=== PATIENT | female | born 1985 | race Caucasian/White ===

== ENCOUNTER 2018-05-30 20:38 | Emergency (ER) | payer OTHER ==
[~2018-05-30] VITALS: Ht 172.7 cm; Wt 117.9 kg
[~2018-05-30 20:38] MED LIST: ACETAMINOPHEN325 M1 PO; ALBUTEROL SULF8.5 GM INH; ALLEGRA ALLERGY60 MG PO; AMOXICILLIN500 MG; AMOXICILLIN500 MG PO; AMOXICILLIN875 MG PO; AUGMENTIN 875-1 EACH PO; BACLOFEN10 MG PO; CLARITHROMYCIN500 MG PO; CLARITIN10 MG PO; CLONAZEPAM0.5 M1 PO; DIFLUCAN150 MG PO; ERYTHROMYCIN3.5 GM OD; FIBER GUMMIES1 EACH PO; FLONASE2 SPRAY NS; IBUPROFEN200 M1 PO; IBUPROFEN800 MG PO; IRON18 MG PO; KEFLEX500 MG PO; LANSOPRAZOLE30 MG PO; LEXAPRO10 MG PO; NAPROXEN500 MG PO; NORCO 5-325 TA1 EACH PO; OMEPRAZOLE20 MG PO; PEPCID20 MG PO; PROBIOTIC1 EAC5 PO; PSEUDOEPHEDRINE60 MG PO; SEPTRA DS TABL1 EACH PO; SINUS & ALLERG120 MG PO; ULTRAM50 MG PO; VITAMIN D5000 UNIT PO; ZITHROMAX250 MG PO; ZOFRAN ODT4 MG PO; ZOFRAN ODT8 MG PO; ZOFRAN4 MG PO; ZOLOFT25 MG PO
[2018-05-30] MEDS ORDERED: PANTOPRAZOLE SO40 MG PO (20:48)
--- NOTE | 2018-05-31 11:43 | EKG ---
[facility] [address] [facility] [place] [address] Signed Normal sinus rhythm Normal ECG No previous ECGs available Confirmed by DEBORAH TYSON MD ([id number]) on 05/31/2018 11:43:48 AM Electronically Signed By: DEBORAH TYSON MD 05/31/18 1143 PATIENT NAME: MAMTA NORMAN MARTELL Electrocardiogram DATE OF : 89 PHYSICIAN: DEBORAH TYSON MD REPORT #: [id number] REPORT IS CONFIDENTIAL AND NOT TO BE RELEASED WITHOUT AUTHORIZATION
== END 2018-05-30 23:01 | disposition home or self-care (01) ==
LOC: ED 20:38
DX: R42 Dizziness and giddiness (principal); F41.9 Anxiety disorder, unspecified; E78.00 Pure hypercholesterolemia, unspecified; Z88.8 Allergy status to other drugs, medicaments and biological substances; Z79.899 Other long term (current) drug therapy
CPT/HCPCS: 80053; 84703; 85025; 93005; 93010; 96360; 99284; J7030

== ENCOUNTER 2019-08-22 04:16 | Emergency (ER) | payer OTHER ==
[~2019-08-22] VITALS: Ht 172.7 cm; Wt 117.9 kg
[~2019-08-22 04:16] MED LIST changes: +PANTOPRAZOLE SO40 MG PO
--- OUTSIDE RECORDS SUMMARY | 2019-08-22 04:18 | XMS ---
PreManage Notification: MAMTA NORMAN Security Industrial Engineering Technologist Events No recent Security Events currently on file CRITERIA MET - NANCY CARE PROVIDERS VIOLETTA HOLMAN Physician Library Services Assistant 05/27/2019-Current PHONE: Unknown Maury Zamarripa MD PHONE: Unknown [facility] 08/30/2010-Frandy Mariee MD PHONE: Unknown Chinmay Porter Current Orthopedic Surgery \T\ Fracture [facility] PHONE: Unknown Violetta Holman Primary Care Current PHONE: Unknown VIOLETTA HOLMAN Primary Care Current PHONE: [phone] [place] has no Care Guidelines for this patient. Kacey VISIT COUNT (12 MO.) 2 [facility] TOTAL 2 NOTE: Visits indicate total known visits. ED/UCC VISIT TRACKING (12 MO.) 08/22/2019 04:17 [facility] [place] TYPE: Emergency COMPLAINT: - COUGH,FEVER 05/26/2019 11:57 [facility] [place] TYPE: Emergency COMPLAINT: - CHEST PRESSURE, NAUSEA DIAGNOSES: - Nicotine dependence, unspecified, uncomplicated - Anxiety disorder, unspecified - Chest pain, unspecified - Allergy status to oth drug/meds/biol subst status - Other superintendent marine oil terminal (current) drug therapy - Acquired absence of other specified parts of digestive tract - Allergy status to analgesic agent status INPATIENT VISIT TRACKING (12 MO.) No inpatient visits to display in this time frame [email or web address]
== END 2019-08-22 05:10 | disposition home or self-care (01) ==
LOC: ED 04:16
DX: J40 Bronchitis, not specified as acute or chronic (principal); F41.9 Anxiety disorder, unspecified; E78.00 Pure hypercholesterolemia, unspecified; F17.200 Nicotine dependence, unspecified, uncomplicated; Z88.8 Allergy status to other drugs, medicaments and biological substances; Z79.899 Other long term (current) drug therapy
CPT/HCPCS: 71046; 99283-25

== ENCOUNTER 2020-11-25 01:11 | Emergency (ER) | payer OTHER ==
[~2020-11-25] VITALS: Ht 172.7 cm; Wt 131.5 kg
--- OUTSIDE RECORDS SUMMARY | 2020-11-25 01:14 | XMS ---
PreManage Notification: MAMTA NORMAN Security Auto Customize Painter Events No recent Security Events currently on file CRITERIA MET - PDMP CARE PROVIDERS VIOLETTA CELAYA Physician General Manager Food 05/27/2019-Current PHONE: Unknown [place] has no Care Guidelines for this patient. EJohn VISIT COUNT (12 MO.) 1 [facility]KO Sherman TOTAL 1 NOTE: Visits indicate total known visits. ED/UCC VISIT TRACKING (12 MO.) 11/25/2020 01:12 [facility] [place] TYPE: Emergency COMPLAINT: - ABDOMINAL PAIN/VOMITING INPATIENT VISIT TRACKING (12 MO.) No inpatient visits to display in this time frame [email or web address]
[2020-11-25] MEDS ORDERED: HYDROCODON-ACE1 EA10 PO (02:58)
[2020-11-25] MEDS ORDERED: ZOFRAN4 MG PO (02:58)
--- NOTE | 2020-11-25 21:25 | EKG ---
[facility] [address] [facility] [place], [place] [address] Signed Normal sinus rhythm Normal ECG When compared with ECG of 26-MAY-2019 12:08, No significant change was found Confirmed by DELGADO CAO MD ([id number]) on 11/25/2020 9:24:57 PM Electronically Signed By: DELGADO CAO MD 11/25/202124 PATIENT NAME: MAMTA NORMAN MARTELL Electrocardiogram DATE OF : [birth year] PHYSICIAN: DELGADO CAO MD REPORT #: [id number] REPORT IS CONFIDENTIAL AND NOT TO BE RELEASED WITHOUT AUTHORIZATION
== END 2020-11-25 03:13 | disposition home or self-care (01) ==
LOC: ED 01:11
DX: R10.12 Left upper quadrant pain (principal); E78.00 Pure hypercholesterolemia, unspecified; F17.200 Nicotine dependence, unspecified, uncomplicated; Z88.8 Allergy status to other drugs, medicaments and biological substances; Z79.899 Other long term (current) drug therapy
CPT/HCPCS: 74177; 80053; 81001; 83690; 84703; 85025; 93005; 93010; 96374; 99284-25; J2405; Q9967

== ENCOUNTER → 2020-12-17 | Emergency (ER) | payer OTHER ==
[~2020-12-17] VITALS: Ht 172.7 cm; Wt 131.5 kg
[~2020-12-17] MED LIST changes: -ACETAMINOPHEN325 M1 PO; +CLONAZEPAM1 MG PO; -FLONASE2 SPRAY NS; +FLUTICASONE PRO16 GM NAS; +HYDROCODON-ACE1 EA10 PO; +MAPAP500 M1 PO; +ONDANSETRON ODT4 MG PO; +VITAMIN D21250 MCG PO; -ZOLOFT25 MG PO; +ZOLOFT50 MG PO
--- OUTSIDE RECORDS SUMMARY | 2020-12-17 13:10 | XMS ---
PreManage Notification: MAMTA NORMAN Security Certified Medical Records Coder Events No recent Security Events currently on file CRITERIA MET - [facility] - 2 Visits in 30 Days CARE PROVIDERS ROMULO CURRIE Physician Owner 11/26/2020-Current PHONE: [phone] VIOLETTA CELAYA Physician Owner 05/27/2019-Current PHONE: Unknown [place] has no Care Guidelines for this patient. EJohn VISIT COUNT (12 MO.) [address] [place] [address] TOTAL 2 NOTE: Visits indicate total known visits. ED/UCC VISIT TRACKING (12 MO.) 12/17/2020 13:08 [facility] [place] TYPE: Emergency COMPLAINT: - BLURRY VISION, HEADACHE 11/25/2020 01:12 [facility] [place] TYPE: Emergency COMPLAINT: - ABDOMINAL PAIN/VOMITING DIAGNOSES: - Nicotine dependence, unspecified, uncomplicated - Pure hypercholesterolemia, unspecified - Other oysterman (current) drug therapy - Left upper quadrant pain - Allergy status to other drugs, medicaments and biological substances INPATIENT VISIT TRACKING (12 MO.) No inpatient visits to display in this time frame [id number]
== END ==
LOC: ED 13:07
DX: G43.909 Migraine, unspecified, not intractable, without status migrainosus (principal); E78.00 Pure hypercholesterolemia, unspecified; Z87.891 Personal history of nicotine dependence; Z88.8 Allergy status to other drugs, medicaments and biological substances; Z79.899 Other long term (current) drug therapy
CPT/HCPCS: 70450; 80048; 85025; 96374; 96375; 99284-25; J0780; J1200; J7030

== ENCOUNTER 2021-01-23 18:03 | Emergency (ER) | payer OTHER ==
[~2021-01-23] VITALS: Ht 172.7 cm; Wt 127.0 kg
--- OUTSIDE RECORDS SUMMARY | 2021-01-23 18:06 | XMS ---
PreManage Notification: MAMTA NORMAN Security Supervisor Cemetery Workers Events No recent Security Events currently on file CRITERIA MET - NANCY CARE PROVIDERS ROMLUO CURRIE Physician Clinical Nursing Professor 11/26/2020-Current PHONE: [phone] VIOLETTA CELAYA Physician Clinical Nursing Professor 05/27/2019-Current PHONE: Unknown [place] has no Care Guidelines for this patient. Kacey VISIT COUNT (12 MO.) Jen Sherman TOTAL 4 NOTE: Visits indicate total known visits. ED/UCC VISIT TRACKING (12 MO.) 01/23/2021 18:05 [facility] [place] TYPE: Emergency COMPLAINT: - CHEST TIGHTNESS, ABDOMINAL PAIN 12/17/2020 19:06 [facility] [place] TYPE: Emergency COMPLAINT: - ANXIETY 12/17/2020 13:08 [facility] [place] TYPE: Emergency COMPLAINT: - BLURRY VISION, HEADACHE DIAGNOSES: - Pure hypercholesterolemia, unspecified - Other watermaster (current) drug therapy - Allergy status to other drugs, medicaments and biological substances - Migraine, unspecified, not intractable, without status migrainosus - Personal history of nicotine dependence - Headache, unspecified 11/25/2020 01:12 [facility] [place] TYPE: Emergency COMPLAINT: - ABDOMINAL PAIN/VOMITING DIAGNOSES: - Nicotine dependence, unspecified, uncomplicated - Pure hypercholesterolemia, unspecified - Other watermaster (current) drug therapy - Left upper quadrant pain - Allergy status to other drugs, medicaments and biological substances INPATIENT VISIT TRACKING (12 MO.) No inpatient visits to display in this time frame [email or web address]
[2021-01-23] MEDS ORDERED: ZOFRAN4 MG PO (21:24)
--- NOTE | 2021-01-24 07:37 | EKG ---
[facility] [address] [facility] [place], [place] [address] Signed Normal sinus rhythm Normal ECG When compared with ECG of 25-NOV-2020 01:29, No significant change was found Confirmed by DELGADO CAO MD ([id number]) on 01/24/2021 7:36:59 AM Electronically Signed By: DELGADO CAO MD 01/24/21 0737 PATIENT NAME: MAMTA NORMAN MARTELL Electrocardiogram DATE OF : [birth year] PHYSICIAN: DELGADO CAO MD REPORT #: [id number] REPORT IS CONFIDENTIAL AND NOT TO BE RELEASED WITHOUT AUTHORIZATION
== END 2021-01-23 21:42 | disposition home or self-care (01) ==
LOC: ED 18:03
DX: U07.1 COVID-19 (principal); E78.00 Pure hypercholesterolemia, unspecified; E66.9 Obesity, unspecified; Z87.891 Personal history of nicotine dependence; Z88.8 Allergy status to other drugs, medicaments and biological substances; Z79.899 Other long term (current) drug therapy
CPT/HCPCS: 71045; 80053; 83690; 84703; 85025; 93005; 93010; 96361; 96374; 99285-25; C9803; J2405; J7030; U0003

== ENCOUNTER 2021-03-03 11:27 | Emergency (ER) | payer OTHER ==
[~2021-03-03] VITALS: Ht 172.7 cm; Wt 133.8 kg
--- OUTSIDE RECORDS SUMMARY | 2021-03-03 11:32 | XMS ---
PreManage Notification: MAMTA NORMAN Security Aircraft Instrument Tester Events No recent Security Events currently on file CRITERIA MET - PDMP - ED - Positive COVID-19 Lab Result - [facility] CARE PROVIDERS ROMULO CURRIE Physician Chief Procurement Officer 11/26/2020-Current PHONE: [phone] VIOLETTA CELAYA Physician Chief Procurement Officer 05/27/2019-Current PHONE: Unknown [place] has no Care Guidelines for this patient. E.D. VISIT COUNT (12 MO.) 5 KIKO Sherman TOTAL 5 NOTE: Visits indicate total known visits. ED/UCC VISIT TRACKING (12 MO.) 03/03/2021 11:[address] [facility] [address] [facility] [place] TYPE: Emergency COMPLAINT: - HEART PALPATIONS 01/23/2021 18:05 [facility] [place] TYPE: Emergency COMPLAINT: - CHEST TIGHTNESS, ABDOMINAL PAIN DIAGNOSES: - COVID-19 - Personal history of nicotine dependence - Allergy status to other drugs, medicaments and biological substances - Obesity, unspecified - Other detention (current) drug therapy - Lower abdominal pain, unspecified - Pure hypercholesterolemia, unspecified 12/17/2020 19:06 [facility] [place] TYPE: Emergency COMPLAINT: - ANXIETY 12/17/2020 13:08 [facility] [place] TYPE: Emergency COMPLAINT: - BLURRY VISION, HEADACHE DIAGNOSES: - Pure hypercholesterolemia, unspecified - Other oil heaterman (current) drug therapy - Allergy status to other drugs, medicaments and biological substances - Migraine, unspecified, not intractable, without status migrainosus - Personal history of nicotine dependence - Headache, unspecified 11/25/2020 01:12 [facility] [place] TYPE: Emergency COMPLAINT: - ABDOMINAL PAIN/VOMITING DIAGNOSES: - Nicotine dependence, unspecified, uncomplicated - Pure hypercholesterolemia, unspecified - Other detention (current) drug therapy - Left upper quadrant pain - Allergy status to other drugs, medicaments and biological substances INPATIENT VISIT TRACKING (12 MO.) No inpatient visits to display in this time frame [email or web address]
--- NOTE | 2021-03-03 16:34 | EKG ---
[facility] [address] [facility] [place], [place] [address] Signed Sinus tachycardia Possible Inferior infarct , age undetermined Abnormal ECG When compared with ECG of 23-JAN-2021 18:13, No significant change was found Confirmed by DOMINIQUE DRAPER DO ([id number]) on 03/03/2021 4:34:00 PM Electronically Signed By: DOMINIQUE DRAPER DO 03/03/21 1634 PATIENT NAME: ESTERLACEYMAMTAWILBUR MOURA Electrocardiogram DATE OF : 89 PHYSICIAN: DOMINIQUE DRAPER DO REPORT #: [id number] REPORT IS CONFIDENTIAL AND NOT TO BE RELEASED WITHOUT AUTHORIZATION
== END 2021-03-03 13:50 | disposition home or self-care (01) ==
LOC: ED 11:27
DX: F41.9 Anxiety disorder, unspecified (principal); F43.0 Acute stress reaction; E78.00 Pure hypercholesterolemia, unspecified; E66.9 Obesity, unspecified; Z88.8 Allergy status to other drugs, medicaments and biological substances; Z79.899 Other long term (current) drug therapy
CPT/HCPCS: 71046; 80053; 83735; 84443; 84484; 85025; 93005; 93010; 96360; 99284-25; J7040

== ENCOUNTER 2021-03-25 07:36 | Emergency (ER) | payer OTHER ==
[~2021-03-25] VITALS: Ht 172.7 cm; Wt 133.8 kg
--- OUTSIDE RECORDS SUMMARY | 2021-03-25 07:42 | XMS ---
PreManage Notification: MAMTA NORMAN Security Utility Plant Operative Events No recent Security Events currently on file CRITERIA MET - 6 ED Visits in 6 Months - [facility] - 2 Visits in 30 Days CARE PROVIDERS ROMULO CURRIE Physician Head Grinder 11/26/2020-Current PHONE: [phone] VIOLETTA CELAYA Physician Head Grinder 05/27/2019-Current PHONE: Unknown [place] has no Care Guidelines for this patient. Kacey VISIT COUNT (12 MO.) [address] [place] [address] TOTAL 6 NOTE: Visits indicate total known visits. ED/UCC VISIT TRACKING (12 MO.) 03/25/2021 07:[address] [facility] [place] TYPE: Emergency COMPLAINT: - CHEST TIGHTNESS 03/03/2021 11:29 [facility] [place] TYPE: Emergency COMPLAINT: - HEART PALPATIONS DIAGNOSES: - Obesity, unspecified - Other retirement (current) drug therapy - Allergy status to other drugs, medicaments and biological substances - Other fatigue - Acute stress reaction - Anxiety disorder, unspecified - Pure hypercholesterolemia, unspecified 01/23/2021 18:[address] [facility] [place] TYPE: Emergency COMPLAINT: - CHEST TIGHTNESS, ABDOMINAL PAIN DIAGNOSES: - COVID-19 - Personal history of nicotine dependence - Allergy status to other drugs, medicaments and biological substances - Obesity, unspecified - Other truck terminal manager (current) drug therapy - Lower abdominal pain, unspecified - Pure hypercholesterolemia, unspecified 12/17/2020 19:[address] [facility] [place] [place] TYPE: Emergency COMPLAINT: - ANXIETY 12/17/2020 13:[address] [facility] [place] TYPE: Emergency COMPLAINT: - BLURRY VISION, HEADACHE DIAGNOSES: - Pure hypercholesterolemia, unspecified - Other retirement (current) drug therapy - Allergy status to other drugs, medicaments and biological substances - Migraine, unspecified, not intractable, without status migrainosus - Personal history of nicotine dependence - Headache, unspecified 11/25/2020 01:[address] [facility] [place] [place] TYPE: Emergency COMPLAINT: - ABDOMINAL PAIN/VOMITING DIAGNOSES: - Nicotine dependence, unspecified, uncomplicated - Pure hypercholesterolemia, unspecified - Other retirement (current) drug therapy - Left upper quadrant pain - Allergy status to other drugs, medicaments and biological substances INPATIENT VISIT TRACKING (12 MO.) No inpatient visits to display in this time frame [id number]
--- NOTE | 2021-03-26 03:10 | EKG ---
[facility] [address] [facility] [place], [place] [address] Signed Normal sinus rhythm Normal ECG When compared with ECG of 03-MAR-2021 11:37, No significant change was found Confirmed by DELGADO CAO MD ([id number]) on 03/26/2021 3:10:02 AM Electronically Signed By: DELGADO CAO MD 03/26/21309 PATIENT NAME: MAMTA NORMAN MARTELL Electrocardiogram DATE OF : [birth year] PHYSICIAN: DELGADO CAO MD REPORT #: [id number] REPORT IS CONFIDENTIAL AND NOT TO BE RELEASED WITHOUT AUTHORIZATION
== END 2021-03-25 09:07 | disposition home or self-care (01) ==
LOC: ED 07:36
DX: K21.9 Gastro-esophageal reflux disease without esophagitis (principal); E78.00 Pure hypercholesterolemia, unspecified; E66.9 Obesity, unspecified; Z88.8 Allergy status to other drugs, medicaments and biological substances; Z79.899 Other long term (current) drug therapy; Z86.16 Personal history of COVID-19
CPT/HCPCS: 71045; 80053; 83735; 84484; 85025; 93005; 93010; 99285-25

== ENCOUNTER 2021-08-28 10:10 | Emergency (ER) | payer OTHER ==
[~2021-08-28] VITALS: Ht 172.7 cm; Wt 133.8 kg
--- OUTSIDE RECORDS SUMMARY | 2021-08-28 10:14 | XMS ---
PreManage Notification: MAMTA NORMAN Security Wax Ball Molder Events No recent Security Events currently on file CRITERIA MET - NANCY CARE PROVIDERS ROMULO CURRIE Physician Quality Assurance Director 11/26/2020-Current PHONE: [phone] VIOLETTA CELAYA Physician Quality Assurance Director 05/27/2019-Current PHONE: Unknown [place] has no Care Guidelines for this patient. Kacey VISIT COUNT (12 MO.) Rica Sherman TOTAL 7 NOTE: Visits indicate total known visits. ED/UCC VISIT TRACKING (12 MO.) 08/28/2021 10:11 [facility] [place] TYPE: Emergency COMPLAINT: - CHEST PRESSURE, LEG CRAMPS 03/25/2021 07:37 [facility] [place] TYPE: Emergency COMPLAINT: - CHEST TIGHTNESS DIAGNOSES: - Other chest pain - Pure hypercholesterolemia, unspecified - Obesity, unspecified - Other remote computer terminal operator (current) drug therapy - Gastro-esophageal reflux disease without esophagitis - Allergy status to other drugs, medicaments and biological substances 03/03/2021 11:29 [facility] [place] TYPE: Emergency COMPLAINT: - HEART PALPATIONS DIAGNOSES: - Obesity, unspecified - Other snf (current) drug therapy - Allergy status to other drugs, medicaments and biological substances - Other fatigue - Acute stress reaction - Anxiety disorder, unspecified - Pure hypercholesterolemia, unspecified 01/23/2021 18:05 [facility] [place] TYPE: Emergency COMPLAINT: - CHEST TIGHTNESS, ABDOMINAL PAIN DIAGNOSES: - COVID-19 - Personal history of nicotine dependence - Allergy status to other drugs, medicaments and biological substances - Obesity, unspecified - Other snf (current) drug therapy - Lower abdominal pain, unspecified - Pure hypercholesterolemia, unspecified 12/17/2020 19:06 [facility] [place] TYPE: Emergency COMPLAINT: - ANXIETY 12/17/2020 13:08 [facility] [place] TYPE: Emergency COMPLAINT: - BLURRY VISION, HEADACHE DIAGNOSES: - Pure hypercholesterolemia, unspecified - Other remote computer terminal operator (current) drug therapy - Allergy status to other drugs, medicaments and biological substances - Migraine, unspecified, not intractable, without status migrainosus - Personal history of nicotine dependence - Headache, unspecified 11/25/2020 01:12 [facility] [place] TYPE: Emergency COMPLAINT: - ABDOMINAL PAIN/VOMITING DIAGNOSES: - Nicotine dependence, unspecified, uncomplicated - Pure hypercholesterolemia, unspecified - Other snf (current) drug therapy - Left upper quadrant pain - Allergy status to other drugs, medicaments and biological substances INPATIENT VISIT TRACKING (12 MO.) No inpatient visits to display in this time frame [email or web address]
--- NOTE | 2021-08-29 18:13 | EKG ---
[facility] [address] [facility] [place] [address] Signed Normal sinus rhythm Possible Inferior infarct , age undetermined Abnormal ECG When compared with ECG of 25-MAR-2021 07:44, No significant change was found Confirmed by DEBORAH TYSON MD ([id number]) on 08/29/2021 6:13:39 PM Electronically Signed By: DEBORAH TYSON MD 08/29/211812 PATIENT NAME: MAMTA NORMAN MARTELL Electrocardiogram DATE OF : [birth year] PHYSICIAN: DEBORAH TYSON MD REPORT #: [id number] REPORT IS CONFIDENTIAL AND NOT TO BE RELEASED WITHOUT AUTHORIZATION
== END 2021-08-28 12:04 | disposition home or self-care (01) ==
LOC: ED 10:10
DX: M79.10 Myalgia, unspecified site (principal); R07.89 Other chest pain; T50.B95A Adverse effect of other viral vaccines, initial encounter; R00.0 Tachycardia, unspecified; E78.00 Pure hypercholesterolemia, unspecified; E66.9 Obesity, unspecified; Z87.891 Personal history of nicotine dependence; Z88.6 Allergy status to analgesic agent; Z88.8 Allergy status to other drugs, medicaments and biological substances; Z79.899 Other long term (current) drug therapy
CPT/HCPCS: 85379; 93005; 93010; 99284-25; A9270

== ENCOUNTER 2021-10-22 05:59 | Emergency (ER) | payer OTHER ==
[~2021-10-22] VITALS: Ht 172.7 cm; Wt 133.8 kg
--- OUTSIDE RECORDS SUMMARY | 2021-10-22 06:02 | XMS ---
PreManage Notification: MAMTA NORMAN Security Outpatient Coder Events No recent Security Events currently on file CRITERIA MET - NANCYP CARE PROVIDERS ROMULO CURRIE Physician Perpetual Inventory Clerk 11/26/2020-Current PHONE: [phone] VIOLETTA CELAYA Physician Perpetual Inventory Clerk 08/29/2021-Current PHONE: Unknown [place] has no Care Guidelines for this patient. Kacey VISIT COUNT (12 MO.) Faith Sherman TOTAL 8 NOTE: Visits indicate total known visits. ED/UCC VISIT TRACKING (12 MO.) 10/22/2021 06:00 [facility] [place] TYPE: Emergency COMPLAINT: - CHEST TIGHTNESS 08/28/2021 10:11 [facility] [place] TYPE: Emergency COMPLAINT: - CHEST PRESSURE, LEG CRAMPS DIAGNOSES: - Adverse effect of other viral vaccines, initial encounter - Pure hypercholesterolemia, unspecified - Myalgia, unspecified site - Other chest pain - Personal history of nicotine dependence - Obesity, unspecified - Other tank terminal gauger (current) drug therapy - Allergy status to other drugs, medicaments and biological substances - Allergy status to analgesic agent - Tachycardia, unspecified 03/25/2021 07:37 [facility] [place] TYPE: Emergency COMPLAINT: - CHEST TIGHTNESS DIAGNOSES: - Other chest pain - Pure hypercholesterolemia, unspecified - Obesity, unspecified - Other senior care (current) drug therapy - Gastro-esophageal reflux disease without esophagitis - Allergy status to other drugs, medicaments and biological substances 03/03/2021 11:29 [facility] [place] TYPE: Emergency COMPLAINT: - HEART PALPATIONS DIAGNOSES: - Obesity, unspecified - Other senior care (current) drug therapy - Allergy status to other drugs, medicaments and biological substances - Other fatigue - Acute stress reaction - Anxiety disorder, unspecified - Pure hypercholesterolemia, unspecified 01/23/2021 18:[address] [facility] [address] [facility] TYPE: Emergency COMPLAINT: - CHEST TIGHTNESS, ABDOMINAL PAIN DIAGNOSES: - COVID-19 - Personal history of nicotine dependence - Allergy status to other drugs, medicaments and biological substances - Obesity, unspecified - Other senior care (current) drug therapy - Lower abdominal pain, unspecified - Pure hypercholesterolemia, unspecified 12/17/2020 19:06 [facility] [place] TYPE: Emergency COMPLAINT: - ANXIETY 12/17/2020 13:08 [facility] [place] TYPE: Emergency COMPLAINT: - BLURRY VISION, HEADACHE DIAGNOSES: - Pure hypercholesterolemia, unspecified - Other senior care (current) drug therapy - Allergy status to other drugs, medicaments and biological substances - Migraine, unspecified, not intractable, without status migrainosus - Personal history of nicotine dependence - Headache, unspecified 11/25/2020 01:12 [facility] [place] TYPE: Emergency COMPLAINT: - ABDOMINAL PAIN/VOMITING DIAGNOSES: - Nicotine dependence, unspecified, uncomplicated - Pure hypercholesterolemia, unspecified - Other senior care (current) drug therapy - Left upper quadrant pain - Allergy status to other drugs, medicaments and biological substances INPATIENT VISIT TRACKING (12 MO.) No inpatient visits to display in this time frame [id number]
--- NOTE | 2021-10-22 14:07 | EKG ---
[facility] [address] [facility] [place], [place] [address] Signed Normal sinus rhythm Normal ECG When compared with ECG of 28-AUG-2021 10:27, No significant change was found Confirmed by DOMINIQUE DRAPER DO ([id number]) on 10/22/2021 2:07:12 PM Electronically Signed By: DOMINIQUE DRAPER DO 10/22/21 1407 PATIENT NAME: MAMTA NORMAN MARTELL Electrocardiogram DATE OF : 89 PHYSICIAN: DOMINIQUE DRAPER DO REPORT #: [id number] REPORT IS CONFIDENTIAL AND NOT TO BE RELEASED WITHOUT AUTHORIZATION
== END 2021-10-22 07:35 | disposition home or self-care (01) ==
LOC: ED 05:59
DX: R07.89 Other chest pain (principal); E78.00 Pure hypercholesterolemia, unspecified; E66.9 Obesity, unspecified; Z87.891 Personal history of nicotine dependence; Z88.8 Allergy status to other drugs, medicaments and biological substances; Z79.899 Other long term (current) drug therapy
CPT/HCPCS: 71046; 80053; 84484; 85025; 93005; 93010; 99285-25

== ENCOUNTER 2023-03-15 02:35 | Emergency (ER) | payer OTHER ==
[~2023-03-15] VITALS: Ht 172.7 cm; Wt 142.0 kg
[~2023-03-15 02:35] MED LIST changes: +ACETAMINOPHEN500 MG PO
--- OUTSIDE RECORDS SUMMARY | 2023-03-15 02:41 | XMS ---
PreManage Notification: MAMTA NORMAN Security Sales Support Coordinator Events No recent Security Events currently on file CRITERIA MET - NANCYP CARE PROVIDERS -, [place]- Dentist: Router Tender [facility] PHONE: [phone] VIOLETTA CELAYA Physician Precipitate Washer 08/29/2021-Current PHONE: Unknown NOHEMI AUGUSTINE Physician Precipitate Washer Current PHONE: [phone] [place] has no Care Guidelines for this patient. E.D. VISIT COUNT (12 MO.) 1 KIKO Sherman TOTAL 1 NOTE: Visits indicate total known visits. ED/UCC VISIT TRACKING (12 MO.) 03/15/2023 02:38 [facility] [place] TYPE: Emergency COMPLAINT: - DIZZY,RINGING EARS INPATIENT VISIT TRACKING (12 MO.) No inpatient visits to display in this time frame [email or web address]
[2023-03-15] MEDS ORDERED: ONDANSETRON ODT8 MG PO (03:24)
[2023-03-15 04:05] VITALS: BP 140/93
== END 2023-03-15 04:10 | disposition home or self-care (01) ==
LOC: ED 02:35
DX: R55 Syncope and collapse (principal); R11.2 Nausea with vomiting, unspecified; T38.3X5A Adverse effect of insulin and oral hypoglycemic [antidiabetic] drugs, initial encounter; E66.9 Obesity, unspecified; Z88.0 Allergy status to penicillin; Z88.6 Allergy status to analgesic agent; Z88.8 Allergy status to other drugs, medicaments and biological substances; Z79.899 Other long term (current) drug therapy; Z87.891 Personal history of nicotine dependence
CPT/HCPCS: 36415; 80053; 83735; 85025; 96361; 96374; 96375; 99284-25; A9270; C9113; J2060; J2405; J7121

== ENCOUNTER 2023-12-08 22:28 | Day surgery (SDC) | payer OTHER ==
[~2023-12-08] VITALS: Ht 172.7 cm; Wt 147.0 kg
[~2023-12-08 22:28] MED LIST changes: +ONDANSETRON ODT8 MG PO
--- OUTSIDE RECORDS SUMMARY | 2023-12-08 22:30 | XMS ---
PreManage Notification: MAMTA NORMAN Security Retail Coordinator Events No recent Security Events currently on file CRITERIA MET - PDMP CARE PROVIDERS VIOLETTA CELAYA Physician Oil Drilling Engineer 08/29/2021-Current PHONE: Unknown -[place]- Dentist: Cardiac Rn [facility] PHONE: [phone] [place] has no Care Guidelines for this patient. Kacey VISIT COUNT (12 MO.) 2 KIKO Sherman TOTAL 2 NOTE: Visits indicate total known visits. ED/UCC VISIT TRACKING (12 MO.) 12/08/2023 22:29 [facility] [place] TYPE: Emergency COMPLAINT: - FOREIGN BODY 03/15/2023 02:38 [facility] [place] TYPE: Emergency COMPLAINT: - DIZZY,RINGING EARS DIAGNOSES: - Adverse effect of insulin and oral hypoglycemic [antidiabetic] drugs, initial encounter - Allergy status to analgesic agent - Allergy status to other drugs, medicaments and biological substances - Allergy status to penicillin - Nausea with vomiting, unspecified - Obesity, unspecified - Other fpc (current) drug therapy - Personal history of nicotine dependence - Syncope and collapse INPATIENT VISIT TRACKING (12 MO.) No inpatient visits to display in this time frame [email or web address]
[2023-12-08 23:44] LABS: BASOPHILS 0.4 % (0-2); EOSINOPHILS 3.2 % (0-6); HEMATOCRIT 38.4 % (35.0-50.0); HEMOGLOBIN 12.8 g/dL (12.0-18.0); INR 0.94 (0.80-1.30); LYMPHOCYTES 25.8 % (24-44); MCH 28.9 (27-36); MCHC 33.3 g/dl (30-36); MCV 86.9 fl (81-99); MONOCYTES 5.1 % (0-12); NEUTROPHILS 65.5 % (39-80); PLATELET COUNT 442 K/uL (140-440); PROTIME 12.2 Sec (11.2-14.2); RBC 4.41 M/ul (4.3-5.7); RDW 13.7 (10.5-15.0)
[2023-12-08 23:50] LABS: ALBUMIN 3.2 g/dL (3.4-5.0); ALBUMIN/GLOBULIN RATIO 0.82 (1.1-2.4); ANION GAP 13.5 (7-21); BILIRUBIN, TOTAL 0.2 ng/dL (0.2-1.0); BUN/CREATININE RATIO 15.71 (6.0-28.6); CALCIUM 8.8 mg/dL (8.5-10.1); CREATININE, SERUM 0.7 mg/dL (0.55-1.02); POTASSIUM 3.5 mmol/L (3.5-5.1); PROTEIN, TOTAL 7.1 g/dL (6.4-8.2)
--- NOTE | 2023-12-09 01:55 | NUR ---
REPORT RECIEVED FROM SURGERY RN. PATIENT INCONTINENT OF URINE. NEW LINENS CHANGED. PATIENT UP TO BATHROOM TO VOID. VSS. NO FURTHER NEEDS. CALL LIGHT IN REACH.
--- NOTE | 2023-12-09 02:08 | NUR ---
12/09/23 0208 Mary Romero Rebecca 0124- PT PRESENTS TO PACU, SEMI SHI POSITION. LR INFUSING TO RH IV, O2 PER 6L PER MASK. PT COUGHING AND REPORTS PAIN TAKING A DEEP BREATH, BREATH SOUNDS CLEAR BILATERALLY, O2 SATS 98% ON 6L. ABD SOFT, NON DISTENDED. DENIES PAIN AND NAUSEA ON ARRIVAL. ALL MONITORS IN PLACE. PT ENCOURAGED TO TAKE SLOW DEEP BREATHS AND EDUCATED ON ET TUBE CAUSING COUGHING. 0131- SATS REMAIN 98-99% ON 6L PER MASK. MOVED TO ROOM AIR AT THIS TIME. COUGHING DECREASING. PT DOES REPORT SOME NAUSEA. LANA STEREO EQUIPMENT INSTALLER AT BEDSIDE, ORDERS RECEIVED. 0155- PT TAKEN TO MED/SURG ROOM 123. ALERT AND ORIENTED, NO SIGNS OF DISTRESS. PT ANSWERS ALL QUESTIONS APPROPRIATELY. LR INFUSING TO RIGHT HAND IV. MEEK RN AND SONAM RN GIVEN REPORT AT BEDSIDE, IS IN THE ROOM. ASSISTED PT TO SIDE OF BED, AMBULATED WITH STEADY GAIT TO BATHROOM. ASSISTED WITH BED CHANGE DO TO LEAKING URINE WHILE COUGHING. PT REMAINS IN BATHROOM AND WILL PUT PANTS BACK ON, MEEK AND SONAM WILL ASSIST PT BACK TO BED. CARE OF PT TURNED OVER AT THIS TIME.
--- NOTE | 2023-12-09 02:11 | OR ---
[facility] [address] [place] [place], [place] [address] Signed DATE OF OPERATION: 12/09/2023 SURGEON: Lencho Wilcox MD PREOPERATIVE DIAGNOSES: 1. Esophageal foreign bodies (pills). 2. Gastroesophageal reflux disease. POSTOPERATIVE DIAGNOSES: 1. No foreign bodies visualized. 2. Small hiatal hernia. 3. Minimal diffuse gastritis. PROCEDURE: EGD with CLOtest and biopsies of the antrum. ESTIMATED BLOOD LOSS: None. INDICATIONS: Mary Ellen is a 38-year-old obese female. She uses Protonix with good symptom relief for her acid reflux. She was planning on having outpatient upper endoscopy sometime this year. She took her handful of pills before she went to bed, which is her usual habit. She thinks quite constantly they got stuck at the GE junction. She came to the emergency room for evaluation. She has been spitting up in the emergency room. The ER doctor asked me to come and see her for consideration of upper endoscopy. I explained to Mary Ellen and her the nature of an upper endoscopy. We had reviewed the risks including, but not limited to gas bloating, crampy abdominal pain, bleeding, perforation requiring surgery, and missed diagnosis. In these cases, we always use general endotracheal tube anesthesia to protect the airway. She had expressed understanding and wished to proceed. DESCRIPTION OF PROCEDURE: Mary Ellen was taken into our endoscopy suite and placed in the supine semi-recumbent position. She was placed under general endotracheal tube anesthesia by our nurse field test engineer. A bite block was utilized. The adult gastroscope was introduced and advanced under direct visualization of camera without difficulty. We went very carefully and slowly down the esophagus. There was nothing whatsoever in the esophagus nor in the area of the GE junction. As we entered the stomach, she had a little bit of residual food left from her supper. We looked around the stomach quite extensively and Electronically Signed By: LENCHO WILCOX MD 12/09/23 5949 PATIENT NAME: MARY ELLEN NORMAN OPERATIVE REPORT DATE OF : 89 REPORT #: [id number] PHYSICIAN: LENCHO WILCOX MD PCP: VIOLETTA CELAYA REPORT IS CONFIDENTIAL AND NOT TO BE RELEASED WITHOUT AUTHORIZATION [facility] [address] [place] [place], [place] [address] Signed never did find any medications. There was a little too much food to get out beyond the pyloric bulb. We went back in the stomach. Very minimal inflammation. We went and took a biopsy of the antrum for CLOtest as well as pathologic review. Upon retroflexion of the scope, I could see her small hiatal hernia. The scope was withdrawn up through the area of the GE junction, which was compliant without stricture. She has very little if any disruption to the Z-line. There was no Dela Cruz's mucosa. I saw no evidence of any trauma whatsoever at the GE junction. The distal middle and upper esophagus were completely unremarkable. After this, the gas was suctioned out and gastroscope removed. Mary Ellen tolerated the procedure quite well. RECOMMENDATIONS: Mary Ellen is to be discharged home later when she is more awake. She is welcome to come see me in the office in 7 to 14 days to review her biopsies. Lencho Wilcox MD ALB/MODL /[id number] cc: Lencho Wilcox MD Patient Chart MELONIE Pacheco Copies: LENCHO WILCOX MD, LINDA PA ~ Electronically Signed By: LENCHO WILCOX MD 12/09/23 0211 PATIENT NAME: MARY ELLEN NORMAN OPERATIVE REPORT DATE OF : 89 REPORT #: [id number] PHYSICIAN: LENCHO WILCOX MD PCP: VIOLETTA CELAYA REPORT IS CONFIDENTIAL AND NOT TO BE RELEASED WITHOUT AUTHORIZATION
[2023-12-09 02:54] VITALS: BP 117/79
--- NOTE | 2023-12-09 03:08 | NUR ---
PATIENT VSS. PATIENT RACHEL PO INTAKE WELL. PATIENT REPORTS NO NEASUA OR PAIN. IV DCd AND WNL. DC PAPERWORK PROVIDED.
--- NOTE | 2023-12-09 03:20 | NUR ---
PT DC'D IN WHEELCHAIR, SIGNIFICANT OTHER WITH HER, BOOKING MANAGER ACCOMPAINED PT TO AUTO. ALL PERSONAL BELONGINGS WITH PT.
--- NOTE | 2023-12-09 06:25 | CONS ---
[facility] [address] [place], [place] [address] Signed DATE OF CONSULTATION: 12/09/2023 CHIEF COMPLAINT: Esophageal foreign body. HISTORY OF PRESENT ILLNESS: Mary Ellen is a 38-year-old obese female, who I have known for many years. I had helped her dad as well. She has been taking Protonix for acid reflux and said it works very nicely. She told me she was actually considering having an outpatient upper endoscopy. She has a habit of taking a whole handful of pills and then going to bed. She said she thinks they got stuck right at the GE junction. It has been painful. It is about 2 hours prior to this. She came to emergency room for evaluation. She cannot seem to swallow much fluid and she spits it all back up. I was called by the ER physician to come and evaluate her. PAST MEDICAL HISTORY: Anxiety, hypercholesterolemia, obesity, and gastroesophageal reflux disease. PAST SURGICAL HISTORY: Includes the cholecystectomy and septoplasty. SOCIAL HISTORY: She is to [place], at [phone]. Violetta Holman is her primary care provider. She prefers the [facility]. FAMILY HISTORY: None reviewed. REVIEW OF SYSTEMS: She had 10 systems reviewed. She told me about the acid reflux. ALLERGIES: Penicillin, prochlorperazine, prednisone and naproxen. MEDICATIONS: Zofran, Claritin, Zoloft, Protonix, and clonazepam. PHYSICAL EXAMINATION: VITAL SIGNS: Blood pressure 140/96, heart rate 105, respiratory rate 20, temperature is 98.3, she is 94% on room air. She is 5 feet 8 inches tall at 324 pounds. GENERAL: Mary Ellen is a 38-year-old obese female, who was lying supine semi-recumbent in her ER bed. Her is in the room. Our nurse came in and out of the room several times. Mary Ellen is in no acute distress. She is controlling her secretions while I was in Electronically Signed By: LENCHO WILCOX MD 12/09/23 0625 PATIENT NAME: MARY ELLEN NORMAN CONSULTATION DATE OF : 89 REPORT #: [id number] PHYSICIAN: LENCHO WILCOX MD PCP: VIOLETTA HOLMAN REPORT IS CONFIDENTIAL AND NOT TO BE RELEASED WITHOUT AUTHORIZATION [facility] [address] [place] [id number] Signed the room. LUNGS: Clear to auscultation bilaterally. HEART: Regular rate and rhythm without murmurs. ABDOMEN: Obese, soft and nontender. She points right at the GE junction at the area for pain. LABORATORY DATA: Her white blood count 13, hemoglobin 12 neutrophils 65. Electrolytes unremarkable. INR 0.9. Albumin 3.2. Beta-hCG is negative. RADIOGRAPHIC STUDIES: X-rays none. ASSESSMENT/PLAN: Mary Ellen is a 38-year-old obese female with a history of acid reflux, requiring Protonix with good results. However, she has a habit of taking handful of pills and she thinks are stuck at the GE junction. She is having trouble drinking and then vomiting everything back up. She told me that she has vomited up some of her food that she ate around 6:00 p.m. jj. I explained to Mary Ellen we need to take her to the endoscopy suite for upper endoscopy. I gave her a brochure on upper endoscopy. She understands the nature of the test. There is risk including, but not limited to gas bloating, crampy abdominal pain, bleeding, perforation requiring surgery, and missed diagnosis. She and her have expressed understanding and would like to proceed. Lencho Wilcox MD ALB/MODL /[id number] cc: Patient Chart MD Violetta Ramsey PA Copies: LENCHO WILCOX MD Electronically Signed By: LENCHO WILCOX MD 12/09/23 0625 PATIENT NAME: MARY ELLEN NORMAN CONSULTATION DATE OF : 89 REPORT #: [id number] PHYSICIAN: LENCHO WILCOX MD PCP: VIOLETTA HOLMAN REPORT IS CONFIDENTIAL AND NOT TO BE RELEASED WITHOUT AUTHORIZATION [facility] [address] [place] [id number] Signed VIOLETTA HOLMAN ~ Electronically Signed By: LENCHO WILCOX MD 12/09/23 0625 PATIENT NAME: MARY ELLEN NORMAN CONSULTATION DATE OF : 89 REPORT #: [id number] PHYSICIAN: LENCHO WILCOX MD PCP: VIOLETTA HOLMAN REPORT IS CONFIDENTIAL AND NOT TO BE RELEASED WITHOUT AUTHORIZATION
== END 2023-12-09 03:15 | disposition home or self-care (01) ==
LOC: ED 22:28 → MS 22:30 → DSVR 12-09 01:01 → MS 12-09 01:01 → OPS 12-09 01:02
PROVIDERS: Internal Medicine; ATTEND Colon & Rectal Surgery
PROC: 0DB78ZX Excision of Stomach, Pylorus, Via Natural or Artificial Opening Endoscopic, Diagnostic (ICD-10-PCS; principal; 2023-12-09 00:48)
DX: K29.70 Gastritis, unspecified, without bleeding (principal); K21.9 Gastro-esophageal reflux disease without esophagitis; K44.9 Diaphragmatic hernia without obstruction or gangrene; E66.9 Obesity, unspecified; E78.00 Pure hypercholesterolemia, unspecified; Z88.0 Allergy status to penicillin; Z88.5 Allergy status to narcotic agent; Z88.8 Allergy status to other drugs, medicaments and biological substances; Z79.899 Other long term (current) drug therapy
CPT/HCPCS: 00813; 36415; 71046; 80053; 84703; 85025; 85610; 87077; 96374; 96375; 99285-25; J0330; J1100; J1610; J2001; J2405; J2704; J3010; J3490; J7121